=== PATIENT | male | born 2000 | race Caucasian/White ===

== ENCOUNTER 2020-07-07 14:07 | Emergency (ER) | payer BC, OTHER ==
[2020-07-07] MEDS ORDERED: TORADOL 10 MG T10 MG PO (15:39)
== END 2020-07-07 15:42 | disposition home or self-care (01) ==
LOC: ER1 14:07
DX: S89.91XA Unspecified injury of right lower leg, initial encounter (principal); X50.1XXA Overexertion from prolonged static or awkward postures, initial encounter; Y92.009 Unspecified place in unspecified non-institutional (private) residence as the place of occurrence of the external cause
CPT/HCPCS: 73564; 99283; J1885